=== PATIENT | female | born 1930 | race Caucasian/White ===

== ENCOUNTER 2017-01-22 11:02 | Observation (INO) | payer MEDICARE, OTHER ==
[~2017-01-22] VITALS: Ht 160 cm; Wt 61.3 kg
[~2017-01-22 11:02] MED LIST: CEFD300C37 PO; DIGO125T6 PO; DONE5TAB7 PO; DOXY100T PO; IRBE300T40 PO; LEVO50TA PO; METO25TA35 PO; SIMV20TA3 PO
[2017-01-22] MEDS ORDERED: RIVA1TAB PO (11:53)
[2017-01-22] MEDS ORDERED: FUROSEMIDE 40 MG/4 ML ONE (12:21)
[2017-01-22 12:29] LABS: HEMATOCRIT 36.5 % (34.6-47.8); HEMOGLOBIN 11.9 g/dL (11.7-16.4); WHITE BLOOD COUNT 7.6 x10^3/uL (3.4-10)
[2017-01-22] MEDS ORDERED: FUROSEMIDE 40 MG/4 ML IV ONE (12:30)
[2017-01-22] MEDS ORDERED: SODIUM CHLORIDE FLUSH 10ML SYR IVF ONE (12:30)
[2017-01-22 12:38] LABS: BLOOD UREA NITROGEN 22 mg/dL (7-18)
[2017-01-22 12:44] LABS: ASPARTATE AMINO TRANSFERASE 33 U/L (15-37)
[2017-01-22 12:45] LABS: IS PT STATUS REG ER OR PRE ER? YES
[2017-01-22] MEDS ORDERED: RIVAROXABAN PO SCH (15:30)
[2017-01-22] MEDS ORDERED: ACETAMINOPHEN 325 MG TABLET PO PRN (15:30)
[2017-01-22 15:48] VITALS: BP 135/95
[2017-01-22] MEDS ORDERED: OMNIPAQUE 350 MG/ML, 100ML BOTTLE ONE (17:03)
[2017-01-22] MEDS ORDERED: DIGOXIN 0.25 MG/ML, 2ML IVPush ONE (17:30)
[2017-01-22 18:23] VITALS: BP 163/103
[2017-01-22 18:42] LABS: BLOOD UREA NITROGEN 21 mg/dL (7-18)
[2017-01-22 18:53] LABS: IS PT STATUS REG ER OR PRE ER? NO
[2017-01-22 19:36] VITALS: BP 142/96
[2017-01-22] MEDS: SIMVASTATIN 20 MG TABLET PO SCH (21:48)
[2017-01-22] MEDS: METOPROLOL TARTRATE 50 MG TABLET PO SCH (21:49)
[2017-01-22 23:36] LABS: IS PT STATUS REG ER OR PRE ER? NO
[2017-01-23 01:50] VITALS: BP 171/93
[2017-01-23 03:00] VITALS: BP 154/96
[2017-01-23] MEDS: LEVOTHYROXINE 50 MCG TABLET PO SCH (05:19)
[2017-01-23 06:15] LABS: HEMATOCRIT 41.5 % (34.6-47.8); HEMOGLOBIN 13.6 g/dL (11.7-16.4); WHITE BLOOD COUNT 7.1 x10^3/uL (3.4-10)
[2017-01-23 06:19] LABS: BLOOD UREA NITROGEN 24 mg/dL (7-18)
[2017-01-23 06:32] LABS: IS PT STATUS REG ER OR PRE ER? NO
[2017-01-23 06:47] LABS: DIFF TOTAL CELLS COUNTED 100 CELL DIFF
[2017-01-23 06:53] LABS: ANISOCYTOSIS 1+; VERIFY COUNTS? YES
[2017-01-23 07:53] VITALS: BP 130/65
[2017-01-23] MEDS: METOPROLOL TARTRATE 50 MG TABLET PO SCH ×2 (09:00→20:21)
[2017-01-23] MEDS: IRBESARTAN 300 MG TABLET PO SCH (09:00)
[2017-01-23] MEDS: FUROSEMIDE 20 MG/2 ML IV SCH ×2 (09:00→17:12)
[2017-01-23] MEDS ORDERED: REGADENOSON 0.4 MG/5 ML SYRINGE ONE (10:13)
[2017-01-23 13:47] VITALS: BP 146/77
[2017-01-23] MEDS ORDERED: RIVAROXABAN 20 MG TABLET PO SCH (17:00)
[2017-01-23 19:48] VITALS: BP 149/88
[2017-01-23] MEDS: SIMVASTATIN 20 MG TABLET PO SCH (20:21)
[2017-01-24 00:56] VITALS: BP 164/91
[2017-01-24 04:41] LABS: BLOOD UREA NITROGEN 23 mg/dL (7-18)
[2017-01-24 08:05] VITALS: BP 133/91
[2017-01-24] MEDS: IRBESARTAN 300 MG TABLET PO SCH (08:35)
[2017-01-24] MEDS: FUROSEMIDE 20 MG/2 ML IV SCH (08:35)
[2017-01-24] MEDS: LEVOTHYROXINE 50 MCG TABLET PO SCH (08:35)
[2017-01-24] MEDS: METOPROLOL TARTRATE 50 MG TABLET PO SCH (08:35)
[2017-01-24] MEDS ORDERED: FURO20TA3 PO (12:08)
[2017-01-24] MEDS ORDERED: FUROSEMIDE 20 MG TABLET PO SCH (17:00)
== END 2017-01-24 13:15 | disposition home or self-care (01) ==
LOC: ED 13:45 → INTOOBSV 13:47 → EDIP 13:47 → ED 14:20 → 5SO 15:38 → INTOOBSV 01-23 10:26 → OBSVTOIN 01-23 10:26 → DCLOUNGE 01-24 12:40
PROVIDERS: ADMIT Family Medicine; ATTEND Family Medicine
DX: R91.8 Other nonspecific abnormal finding of lung field (principal); R60.0 Localized edema; I50.23 Acute on chronic systolic (congestive) heart failure; I35.2 Nonrheumatic aortic (valve) stenosis with insufficiency; I48.91 Unspecified atrial fibrillation; I11.0 Hypertensive heart disease with heart failure; N17.9 Acute kidney failure, unspecified; E03.9 Hypothyroidism, unspecified; D68.69 Other thrombophilia; I42.9 Cardiomyopathy, unspecified; Z90.49 Acquired absence of other specified parts of digestive tract; Z87.891 Personal history of nicotine dependence; Z79.01 Long term (current) use of anticoagulants
CPT/HCPCS: 36415; 71010; 71260; 78452; 80048; 80053; 83880; 84436; 84443; 84484; 85025; 85610; 93005; 93017; 93306; 96374; 96375; 96376; 99285; A9502; C9898; G0378; J1160; J1940; J2785; Q9967

== ENCOUNTER → 2017-05-14 | Outpatient (CLI) | payer MEDICARE, OTHER ==
[~2017-05-14] MED LIST changes: +DOBUTAMINE/D5W PMX 250 ML ONE; +EXELON PO; +FURO20TA3 PO; +METO50TA82 PO; +OMNIPAQUE 350 MG/ML, 150 ML BOTTLE ONE; +RIVA1.5C4 PO; +RIVA15TA PO; +RIVA1TAB PO; +VIT1CAPS42 PO
[2017-05-14 10:20] LABS: ANION GAP 6 mmol/L (5-15); CALCIUM 9.3 mg/dL (8.5-10.1); CHLORIDE 107 mmol/L (98-107); CREATININE 1.27 mg/dL (0.55-1.02)
== END ==
LOC: CARD 09:50
PROVIDERS: ATTEND Internal Medicine Cardiovascular Disease
DX: I35.0 Nonrheumatic aortic (valve) stenosis (principal); I77.810 Thoracic aortic ectasia; K55.1 Chronic vascular disorders of intestine; I65.23 Occlusion and stenosis of bilateral carotid arteries; I70.0 Atherosclerosis of aorta; E04.1 Nontoxic single thyroid nodule; I48.0 Paroxysmal atrial fibrillation
CPT/HCPCS: 36415; 71275; 74174; 80048; 93017; 93350; 93880; 94060; 94726; 94729; J1250; Q9967

== ENCOUNTER 2017-07-01 06:06 | Inpatient (IN) | payer MEDICARE, OTHER ==
[2017-06-30 11:48] VITALS: BP 164/80
[2017-06-30 12:13] LABS: BASOPHILS # (AUTO) 0.02 x10^3/uL (0-0.1); BASOPHILS % (AUTO) 0 % (0-1); EOSINOPHILS # (AUTO) 0.29 x10^3/uL (0-0.4); EOSINOPHILS % (AUTO) 4 % (1-7); LYMPHOCYTES # (AUTO) 1.79 x10^3/uL (1-3.4); LYMPHOCYTES % (AUTO) 23 % (22-44); MD NO; MEAN CORPUSCULAR HEMOGLOBIN 29.9 pg (27.0-34.8); MEAN CORPUSCULAR HGB CONC 33.6 g/dL (32.4-35.8); MEAN CORPUSCULAR VOLUME 88.8 fL (80-100); MEAN PLATELET VOLUME 7.6 fL (7.4-10.4); MONOCYTES # (AUTO) 1.03 x10^3/uL (0.2-0.8); MONOCYTES % (AUTO) 13 % (2-9); NEUTROPHILS # (AUTO) 4.65 x10^3/uL (1.8-6.8); NEUTROPHILS % (AUTO) 60 % (42-75); PLATELET COUNT 281 x10^3/uL (130-400); RED BLOOD COUNT 4.79 x10^6/uL (3.82-5.3); RED CELL DISTRIBUTION WIDTH 14.6 % (9.6-15.2)
[2017-06-30 12:22] LABS: INTERNATIONAL NORMALIZED RATIO 1.11 (0.93-1.1); PROTHROMBIN TIME 11.4 Seconds (9.6-11.5)
[2017-06-30 12:47] LABS: CHLORIDE 106 mmol/L (98-107)
[2017-06-30 13:10] LABS: ALANINE AMINOTRANSFERASE 25 U/L (12-78); ALBUMIN 3.8 g/dL (3.4-5.0); ALKALINE PHOSPHATASE 90 U/L (45-117); ANION GAP 11 mmol/L (5-15); BILIRUBIN,TOTAL 0.8 mg/dL (0.2-1.0); CALCIUM 9.2 mg/dL (8.5-10.1); CREATININE 1.34 mg/dL (0.55-1.02); TOTAL PROTEIN 8.1 g/dL (6.4-8.2)
[~2017-07-01] VITALS: Ht 170.2 cm; Wt 63.6 kg
[~2017-07-01 06:06] MED LIST changes: -DOBUTAMINE/D5W PMX 250 ML ONE; -OMNIPAQUE 350 MG/ML, 150 ML BOTTLE ONE
[2017-07-01] MEDS ORDERED: SODIUM CHLORIDE 0.9% 1,000 ML IV ONE (06:21)
[2017-07-01] MEDS ORDERED: CHLORHEXIDINE GLUCONATE MOUTHWASH 0.12%, 473ML MM PRN (06:30)
[2017-07-01] MEDS ORDERED: ONDANSETRON 2MG/ML, 2ML IVPush PRN ×2 (06:30→10:00)
[2017-07-01] MEDS ORDERED: FENTANYL PF 250 MCG/5ML ONE (06:44)
[2017-07-01] MEDS ORDERED: LIDOCAINE 2%, 20ML ONE (06:54)
[2017-07-01] MEDS ORDERED: VERAPAMIL 2.5 MG/ML, 2ML ONE (07:57)
[2017-07-01] MEDS ORDERED: HEPARIN 1,000 UNITS/ML, 30ML ONE (08:03)
[2017-07-01] MEDS ORDERED: HEPARIN 1,000 UNITS/ML, 10ML ONE (08:26)
[2017-07-01] MEDS ORDERED: VASOPRESSIN 20 UNIT/ML, 1ML ONE (08:40)
[2017-07-01] MEDS ORDERED: SUCCINYLCHOLINE 20 MG/ML, 10ML ONE (08:40)
[2017-07-01] MEDS ORDERED: ROCURONIUM 10 MG/ML,10ML ONE (08:40)
[2017-07-01] MEDS ORDERED: ONDANSETRON 2MG/ML, 2ML ONE (08:40)
[2017-07-01] MEDS ORDERED: PROPOFOL 10 MG/ML, 20ML ONE (08:41)
[2017-07-01] MEDS ORDERED: ACETAMINOPHEN 325 MG TABLET PO PRN (10:00)
[2017-07-01] MEDS ORDERED: GLUCAGON 1 MG IM PRN (10:00)
[2017-07-01] MEDS ORDERED: DEXTROSE 4 GM TAB.CHEW PO PRN (10:00)
[2017-07-01] MEDS ORDERED: DEXTROSE 50%, 50ML SYRINGE IVPush PRN (10:00)
[2017-07-01] MEDS ORDERED: HYDROcodone/APAP 5/325 TABLET PO PRN (10:00)
[2017-07-01] MEDS: hydrALAzine 20 MG/ML, 1ML IVPush PRN ×2 (10:07→10:59)
[2017-07-01] MEDS ORDERED: LABETALOL 5MG/ML, 20ML ONE (10:16)
[2017-07-01] MEDS: LABETALOL 5MG/ML, 20ML IVPush PRN ×2 (10:32→15:18)
[2017-07-01] MEDS: SODIUM CHLORIDE 0.9% 1,000 ML IV SCH (16:28)
[2017-07-01] MEDS ORDERED: LABETALOL 250 MG in DEXTROSE 5% 200 ML IV PRN (17:00)
[2017-07-01] MEDS ORDERED: RIVAROXABAN 15 MG TABLET PO SCH (17:00)
[2017-07-01] MEDS: METOPROLOL TARTRATE 50 MG TABLET PO SCH (20:22)
[2017-07-01] MEDS: SODIUM CHLORIDE FLUSH 10ML SYR IVF SCH (20:22)
[2017-07-01] MEDS ORDERED: SIMVASTATIN 20 MG TABLET PO SCH (21:00)
[2017-07-01] MEDS ORDERED: LABETALOL IV PRN (21:30)
[2017-07-01] MEDS ORDERED: DEXTROSE 5% IV PRN (21:30)
[2017-07-02 04:15] VITALS: BP 157/85
[2017-07-02 04:42] LABS: ALBUMIN 3.4 g/dL (3.4-5.0); ANION GAP 9 mmol/L (5-15); CALCIUM 8.5 mg/dL (8.5-10.1); CHLORIDE 107 mmol/L (98-107)
[2017-07-02 04:44] LABS: BASOPHILS % (AUTO) 0 % (0-1); EOSINOPHILS % (AUTO) 0 % (1-7); LYMPHOCYTES # (AUTO) 0.64 x10^3/uL (1-3.4); LYMPHOCYTES % (AUTO) 5 % (22-44); MD NO; MEAN CORPUSCULAR HEMOGLOBIN 29.5 pg (27.0-34.8); MEAN CORPUSCULAR VOLUME 89.4 fL (80-100); MEAN PLATELET VOLUME 7.7 fL (7.4-10.4); MONOCYTES # (AUTO) 0.86 x10^3/uL (0.2-0.8); MONOCYTES % (AUTO) 7 % (2-9); NEUTROPHILS # (AUTO) 11.85 x10^3/uL (1.8-6.8); NEUTROPHILS % (AUTO) 89 % (42-75); PLATELET COUNT 188 x10^3/uL (130-400); RED BLOOD COUNT 4.45 x10^6/uL (3.82-5.3); RED CELL DISTRIBUTION WIDTH 14.5 % (9.6-15.2)
[2017-07-02] MEDS: SODIUM CHLORIDE 0.9% 1,000 ML IV SCH (05:38)
[2017-07-02] MEDS ORDERED: LEVOTHYROXINE 50 MCG TABLET PO SCH (06:00)
[2017-07-02] MEDS ORDERED: FUROSEMIDE 20 MG TABLET PO SCH (09:00)
[2017-07-02] MEDS ORDERED: RIVASTIGMINE 1.5 MG CAPSULE PO SCH (09:00)
[2017-07-02] MEDS ORDERED: RIVAROXABAN 15 MG TABLET PO SCH (09:00)
[2017-07-02] MEDS ORDERED: CLOPIDOGREL 75 MG TABLET PO SCH (09:00)
[2017-07-02] MEDS ORDERED: ASPIRIN 325 MG TABLET PO SCH (09:00)
[2017-07-02] MEDS: METOPROLOL TARTRATE 50 MG TABLET PO SCH (09:26)
[2017-07-02] MEDS: SODIUM CHLORIDE FLUSH 10ML SYR IVF SCH (09:30)
[2017-07-02] MEDS ORDERED: IRBESARTAN 300 MG TABLET PO SCH (10:30)
[2017-07-02] MEDS ORDERED: LORazepam 2 MG/ML, 1ML IVPush PRN (12:00)
[2017-07-02] MEDS ORDERED: ATROPINE OPHTH SOLN 1%, 5ML PO PRN (12:00)
== END 2017-07-02 13:19 | disposition expired | DRG 266 ==
LOC: ORIP 06:06 → EDSTATUS 08:00 → CSU 09:51 → CCU 19:36
PROVIDERS: ADMIT Internal Medicine Cardiovascular Disease; ATTEND Internal Medicine Cardiovascular Disease
PROC: 027F3ZZ Dilation of Aortic Valve, Percutaneous Approach (ICD-10-PCS; 2017-07-01)
PROC: B3101ZZ Fluoroscopy of Thoracic Aorta using Low Osmolar Contrast (ICD-10-PCS; 2017-07-01)
PROC: 02RF38Z Replacement of Aortic Valve with Zooplastic Tissue, Percutaneous Approach (ICD-10-PCS; principal; 2017-07-01 08:00)
DX: I35.0 Nonrheumatic aortic (valve) stenosis (principal); Z00.6 Encounter for examination for normal comparison and control in clinical research program; I63.512 Cerebral infarction due to unspecified occlusion or stenosis of left middle cerebral artery; I50.33 Acute on chronic diastolic (congestive) heart failure; I48.91 Unspecified atrial fibrillation; G81.91 Hemiplegia, unspecified affecting right dominant side; R41.4 Neurologic neglect syndrome; R47.01 Aphasia; Z51.5 Encounter for palliative care; I11.0 Hypertensive heart disease with heart failure; Z87.891 Personal history of nicotine dependence; Z66 Do not resuscitate
CPT/HCPCS: 33361; 36415; 70450; 71045; 74018; 80048; 80053; 82040; 82330; 82803; 82947; 82962; 83880; 84132; 84295; 85014; 85025; 85347; 85610; 85730; 86850; 86900; 86923; 87081; 92986; 93005; 93308; 93312; 93321; 93325; 93355; 93567; C1760; C1769; C1894; J1644; J2405; J2704; J3010; J3490; J7060; J0330; J0360; J2270; J7030; Q9967